=== PATIENT | female | born 1940 | race Caucasian/White ===

== ENCOUNTER 2024-10-05 04:40 | Emergency (ER) | payer MEDICARE ==
[~2024-10-05] VITALS: Ht 152.4 cm; Wt 71.7 kg
[2024-10-05] MEDS ORDERED: TRAMADOL HCL 50 MG TABLET ONE (06:56)
[2024-10-05] MEDS ORDERED: IBUPROFEN 600 MG TABLET ONE (06:56)
[2024-10-05] MEDS: IBUPROFEN 600 MG TABLET PO ONE (06:57)
[2024-10-05] MEDS: TRAMADOL HCL 50 MG TABLET PO ONE (06:58)
[2024-10-05] MEDS ORDERED: IBUP-1955 PO (07:54)
[2024-10-05] MEDS ORDERED: TRAM50TA2 PO (07:54)
[2024-10-05 08:31] VITALS: BP 126/68; TEMP 98; O2SAT 98
== END 2024-10-05 08:31 | disposition home or self-care (01) ==
LOC: ER 04:44
DX: S52.592A Other fractures of lower end of left radius, initial encounter for closed fracture (principal); S52.612A Displaced fracture of left ulna styloid process, initial encounter for closed fracture; I25.10 Atherosclerotic heart disease of native coronary artery without angina pectoris; E11.9 Type 2 diabetes mellitus without complications; Z85.07 Personal history of malignant neoplasm of pancreas; Z95.5 Presence of coronary angioplasty implant and graft; W18.39XA Other fall on same level, initial encounter; Y93.89 Activity, other specified; Y92.89 Other specified places as the place of occurrence of the external cause; Y99.8 Other external cause status
CPT/HCPCS: 73110